=== PATIENT | female | born 1975 | race African-American/Black ===

== ENCOUNTER 2022-03-07 06:43 | Outpatient (REF) | payer BC, SELFPAY ==
--- NOTE | ~2022-03-07 | XR_ITS ---
EXAMINATION: XR KNEE, LEFT CLINICAL INFORMATION: Left knee pain. COMPARISON: Previous x-ray July 2016 TECHNIQUE: Standing view of both knees and lateral and sunrise view of the left knee of the left knee. FINDINGS: LEFT KNEE: Bone alignment is normal. No fracture or dislocation is seen. There is severe arthritis at the medial femorotibial and patellofemoral joints with joint space narrowing and osteophyte formation. There is an osteophyte at the quadriceps tendon insertion to the patella. There is a small joint effusion. RIGHT KNEE: Standing AP view of the right knee demonstrates arthritis at the medial femorotibial joint. XR/XR knee LT 2V IMPRESSION: LEFT KNEE: Arthritis at the medial femorotibial and patellofemoral joints and small joint effusion. RIGHT KNEE: Arthritis at the medial femorotibial joint.
--- NOTE | ~2022-03-07 | XR_ITS ---
EXAMINATION: XR KNEE, LEFT CLINICAL INFORMATION: Left knee pain. COMPARISON: Previous x-ray July 2016 TECHNIQUE: Standing view of both knees and lateral and sunrise view of the left knee of the left knee. FINDINGS: LEFT KNEE: Bone alignment is normal. No fracture or dislocation is seen. There is severe arthritis at the medial femorotibial and patellofemoral joints with joint space narrowing and osteophyte formation. There is an osteophyte at the quadriceps tendon insertion to the patella. There is a small joint effusion. RIGHT KNEE: Standing AP view of the right knee demonstrates arthritis at the medial femorotibial joint. XR/XR knee standing BI IMPRESSION: LEFT KNEE: Arthritis at the medial femorotibial and patellofemoral joints and small joint effusion. RIGHT KNEE: Arthritis at the medial femorotibial joint.
== END 2022-03-07 06:44 | disposition home or self-care (01) ==
LOC: HO.HOSX 06:43
PROVIDERS: Visit Provider Physician Assistant
DX: M17.12 Unilateral primary osteoarthritis, left knee (principal); M25.561 Pain in right knee
CPT/HCPCS: 20610; 73560; 73565; J1040

== ENCOUNTER 2024-02-19 09:34 | Outpatient (REF) | payer BC, SELFPAY ==
--- NOTE | ~2024-02-19 | XR_ITS ---
EXAMINATION: XR KNEE, LEFT CLINICAL INFORMATION: Pain in unspecified knee. COMPARISON: 03/07/2022. TECHNIQUE: AP standing view of bilateral knees. Lateral and sunrise views of the left knee. FINDINGS: RIGHT KNEE: AP standing view of the right knee demonstrates lwtcjyxq-me-wflohn narrowing of the medial compartment with medial and lateral marginal osteophytes. LEFT KNEE: Redemonstration of [id number]-[id number] narrowing of the medial compartment with narrowing of the patellofemoral compartment as well. Tricompartmental osteophytes. Small suprapatellar effusion. XR/XR knee LT 3V IMPRESSION: 1. Advanced degenerative changes in the medial and patellofemoral compartments of the left knee. 2. Advanced degenerative changes in the right medial compartment.
== END 2024-02-19 09:35 | disposition home or self-care (01) ==
LOC: HO.HOSX 09:34
PROVIDERS: Visit Provider Physician Assistant
DX: M17.12 Unilateral primary osteoarthritis, left knee (principal)
CPT/HCPCS: 20610; 73562; J1040

== ENCOUNTER 2024-02-19 15:15 | Outpatient (AMB) | payer BC, SELFPAY ==
--- NOTE | 2024-02-19 15:29 | MHC.OFFVIS ---
Intake Intake Visit Reasons: OV - left knee OA, last inj 03/07/22 Allergies codeine Allergy (Unknown, Verified 03/07/22 14:00) Agitated No Known Allergies Allergy (Unverified 03/07/22 14:00) Pt states no known allergy to Allergy (Unknown, Uncoded 03/07/22 14:00) Agitated HPI OV - left knee OA, last inj 03/07/22 HPI Details 49-year-old female who presents in the office today for a follow up of left knee osteoarthritis. I last saw the patient in the office on 03/07/2022 at which time she received a cortisone injection in the left knee. 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 No ecchymosis, redness or joint effusion .Full extension and flexion. No tenderness to palpation of the medial or lateral joint lines. Crepitus felt on ROM. Negative steinmans and anterior drawer. NVI. Office Procedures Joint Injection/Drain Joint Injection/Drain Primary Site: left knee Prep: site was prepped using aseptic technique, ethochloride spray was applied and injection warnings given Injected: 80 mg of, DepoMedrol, with 8 mL of (2% plain lido ) and in the joint Approach Used: anterolateral Procedure: The patient tolerated the procedure well, but had some pain with the injection and there was some relief with the local anesthesia Coding 59500 - Large joint Procedure code (CPT) selection complete Assessment & Plan Assessment & Plan (1) Osteoarthritis of left knee: Code(s): M17.12 - Unilateral primary osteoarthritis, left knee Qualifiers: Osteoarthritis type: unspecified Qualified Code(s): M17.12 - Unilateral primary osteoarthritis, left knee Plan Ms. Morris is a 49-year-old female who presents in the office today for a follow up of left knee osteoarthritis. I last saw the patient in the office on 03/07/2022 at which time she received a cortisone injection in the left knee. The patient was offered a cortisone injection in the left knee with 80 mg of DepoMedrol. The patient was explained the risk, benefits, and alternatives to receiving this injection. After receiving consent for the injection, the patient had the procedure done while in office today. The patient tolerated the procedure well with no complications. Follow up will be PRN, or sooner if needed. X-rays of the left knee which were obtained while in the office today and were reviewed by me, Deborah Villa PA-C, revealed severe osteoarthritis with varus deformity. Orders: Orders XR knee standing BI Today M25.569 - Pain in unspecified knee Patient Instructions: Scribed by Aleida Duque medical information officer, for Deborah Villa PA-C on 02/19/2024 at 3:18 pm, EST. Coding Level of Care Code Est Pt Level 3 (29227) Diagnoses Osteoarthritis of left knee, unspecified osteoarthritis type M17.12 Osteoarthritis type: unspecified CPT Codes Coding - 43756 Large joint: 75043 - Large joint ([id number])
--- NOTE | 2024-02-19 15:36 | MHC.OFFVIS ---
Intake Intake Visit Reasons: OV - left knee OA, last inj 03/07/22 Intake Note: Sha is a 49 year old patient who presents today for a follow up of her left knee OA, last injection 03/07/22. Patient reports her last injection lasted her about 2 - 3 months, however she would like to repeat the before she starts to think about gel injections. Patient has tried 3 + months of topical cream. 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 Office Procedures Joint Injection/Drain Joint Injection/Drain Primary Site: left knee Prep: site was prepped using aseptic technique, ethochloride spray was applied and injection warnings given Injected: 80 mg of, DepoMedrol, with 8 mL of (2% plain lido ) and in the joint Approach Used: anterolateral Procedure: The patient tolerated the procedure well, but had some pain with the injection and there was some relief with the local anesthesia Coding 83922 - Large joint Procedure code (CPT) selection complete Assessment & Plan Assessment & Plan (1) Osteoarthritis of left knee: Code(s): M17.12 - Unilateral primary osteoarthritis, left knee Qualifiers: Osteoarthritis type: unspecified Qualified Code(s): M17.12 - Unilateral primary osteoarthritis, left knee Orders: Orders XR knee standing BI Today M25.569 - Pain in unspecified knee Coding Diagnoses Osteoarthritis of left knee, unspecified osteoarthritis type M17.12 Osteoarthritis type: unspecified CPT Codes Coding - 13317 Large joint: 47026 - Large joint ([id number])
== END 2024-02-19 15:37 | disposition home or self-care (01) ==
PROVIDERS: Visit Provider Physician Assistant
DX: M17.12 Unilateral primary osteoarthritis, left knee (principal)
CPT/HCPCS: 20610; 99213

== ENCOUNTER 2024-03-18 10:42 | Outpatient (REF) | payer BC, SELFPAY ==
--- NOTE | ~2024-03-18 | XR_ITS ---
EXAMINATION: XR KNEE, RIGHT CLINICAL INFORMATION: Pain in unspecified knee COMPARISON: AP standing view both knees TECHNIQUE: Lateral and sunrise of the right knee. FINDINGS: No fracture. Not appropriately positioned to evaluate for joint effusion. There is known marked degenerative change of the medial joint compartment with marginal osteophyte formation. There is moderate narrowing of the patellofemoral joint compartment with large marginal osteophytes. No abnormal soft tissue calcification. XR/XR knee RT 2V IMPRESSION: 1. No acute bony abnormality. 2. Degenerative changes.
== END 2024-03-18 10:43 | disposition home or self-care (01) ==
LOC: HO.HOSX 10:42
PROVIDERS: Visit Provider Physician Assistant
DX: M17.11 Unilateral primary osteoarthritis, right knee (principal)
CPT/HCPCS: 20610; 73560; J1010

== ENCOUNTER 2024-03-18 15:21 | Outpatient (AMB) | payer BC, SELFPAY ==
--- NOTE | 2024-03-18 15:43 | MHC.OFFVIS ---
Vital Signs 03/18/24 15:47 Height 5 ft 2 in Weight 245 lb BMI 44.8 Intake Visit Reasons: OV - left knee pain Intake Note: Sha is a 49 year old female who presents today for a follow up of her left knee, last injection 02/19/24. Patient reports a week of relief. She expresses that her pain started to come back about 2 weeks ago. Patient describes hearing crunching and popping in her knee when she is laying down. Allergies codeine Allergy (Unknown, Verified 03/18/24 15:47) Agitated No Known Allergies Allergy (Verified 03/18/24 15:47) Pt states no known allergy to Allergy (Unknown, Uncoded 03/07/22 14:00) Agitated HPI HPI OV - left knee pain: Details: 49-year-old female who presents in the office today for an evaluation of bilateral knee pain. I last saw the patient in the office on 02/19/2024 when she received a cortisone injection. While in the office today the patient reports the injection gave her about one week of relief. She states her pain returned about 2 weeks ago. She claims to hear crunching and popping in the left knee when she is laying down. Patient reports pain in the right knee. 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 No ecchymosis, redness or joint effusion .Full extension and flexion. No tenderness to palpation of the medial or lateral joint lines. Crepitus felt on ROM. Negative steinmans and anterior drawer. NVI. Right knee: Normal to inspection. No ecchymosis, erythema, or joint effusion. No tenderness to palpation along the medial or lateral joint lines. Full knee extension and flexion. Crepitus felt with ROM. NVI. Office Procedures Joint Injection/Drain Joint Injection/Drain Primary Site: right knee Prep: site was prepped using aseptic technique, ethochloride spray was applied and injection warnings given Injected: 80 mg of, DepoMedrol, with 8 mL of (2% plain lido ) and in the joint Approach Used: anterolateral Procedure: The patient tolerated the procedure well, but had some pain with the injection and there was some relief with the local anesthesia Coding 18719 - Large joint Procedure code (CPT) selection complete Assessment & Plan Assessment & Plan (1) Osteoarthritis of left knee: Code(s): M17.12 - Unilateral primary osteoarthritis, left knee Category: Medical Qualifiers: Osteoarthritis type: unspecified Qualified Code(s): M17.12 - Unilateral primary osteoarthritis, left knee (2) Osteoarthritis of right knee: Code(s): M17.11 - Unilateral primary osteoarthritis, right knee Category: Medical Qualifiers: Osteoarthritis type: unspecified Qualified Code(s): M17.11 - Unilateral primary osteoarthritis, right knee Plan Ms. Morris is a 49-year-old female who presents in the office today for an evaluation of bilateral knee pain. I last saw the patient in the office on 02/19/2024 when she received a cortisone injection. While in the office today the patient reports the injection gave her about one week of relief. She states her pain returned about 2 weeks ago. She claims to hear crunching and popping in the left knee when she is laying down. Patient reports pain in the right knee. The patient was offered a cortisone injection in the right knee with 80mg of DepoMedrol. The patient was explained the risk, benefits, and alternatives to receiving this injection. After receiving consent for the injection, the patient had the procedure done while in the office today. The patient tolerated the procedure well with no complications. Patient reports 2 weeks worth of relief with her left knee cortisone injection. She would like to attempt an injection of cortisone in the right knee. We will also petition the insurance company for coverage of Gel injections for the bilateral knees. Follow-up will be after insurance approval for Gel injections, or sooner if needed. X-rays of the right knee which were obtained while in the office today and were reviewed by me, Deborah Villa PA-C, revealed significant osteoarthritis. Orders: Orders XR knee RT 2V Today M25.569 - Pain in unspecified knee Patient Instructions: Scribed by Aleida Duque medical communication specialist, for Deborah Villa PA-C on 03/18/2024 at 3:44 pm, EST.
[2024-03-18 15:47] VITALS: BMI 44.8
== END 2024-03-18 16:33 | disposition home or self-care (01) ==
PROVIDERS: Visit Provider Physician Assistant
DX: M17.0 Bilateral primary osteoarthritis of knee (principal)
CPT/HCPCS: 20610; 99213

== ENCOUNTER 2024-04-15 15:16 | Outpatient (AMB) | payer BC, SELFPAY ==
--- NOTE | 2024-04-15 15:25 | A.OFFVIS_ITS ---
Intake Visit Reasons: Left Knee Euflexxa Gel injection #1 Intake Note: Sha is a 49 year old female who presents today for her first euflexxa gel injections for her left knee. Allergies codeine Allergy (Unknown, Verified 03/18/24 15:47) Agitated No Known Allergies Allergy (Verified 03/18/24 15:47) Pt states no known allergy to Allergy (Unknown, Uncoded 03/07/22 14:00) Agitated HPI HPI Left Knee Euflexxa Gel injection #1: Details: 49-year-old female who presents in the office today for a follow up of left knee pain and to obtain her 1st Euflexxa injection in a series of 3. 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 No ecchymosis, redness or joint effusion .Full extension and flexion. No tenderness to palpation of the medial or lateral joint lines. Crepitus felt on ROM. Negative steinmans and anterior drawer. NVI. Office Procedures Joint Injection/Drain Joint Injection/Drain Primary Site: left knee Prep: site was prepped using aseptic technique, ethochloride spray was applied and injection warnings given Injected: in the joint (Eufelxxa #1) Approach Used: anterolateral Procedure: The patient tolerated the procedure well, but had some pain with the injection and there was some relief with the local anesthesia Coding 74990 - Large joint Procedure code (CPT) selection complete Assessment & Plan Assessment & Plan (1) Osteoarthritis of left knee: Code(s): M17.12 - Unilateral primary osteoarthritis, left knee Category: Medical Qualifiers: Osteoarthritis type: unspecified Qualified Code(s): M17.12 - Unilateral primary osteoarthritis, left knee Plan Ms. Morris is a 49-year-old female who presents in the office today for a follow up of left knee pain and to obtain her 1st Euflexxa injection in a series of 3. The patient was injection with her 1stEuflexxa injection in the left knee. The patient was explained the risk, benefits, and alternatives to receiving this injection. After receiving consent for the injection, the patient had the procedure done while in the office today. The patient tolerated the procedure well with no complications. Follow up will be in 1 week for her second injection in a series of three, or sooner if needed. Patient Instructions: Scribed by Aleida Duque medical reception specialist, for Deborah Villa PA-C on 04/15/2024 at 3:49 pm, EST. Coding Level of Care Code Procedure Only Diagnoses Osteoarthritis of left knee, unspecified osteoarthritis type M17.12 Osteoarthritis type: unspecified CPT Codes Coding - 85286 Large joint: 25635 - Large joint ([id number])
== END 2024-04-15 15:47 | disposition home or self-care (01) ==
PROVIDERS: Visit Provider Physician Assistant
DX: M17.12 Unilateral primary osteoarthritis, left knee (principal)
CPT/HCPCS: 20610

== ENCOUNTER → 2024-04-15 15:16 | Outpatient (BNVA) | payer BC, SELFPAY | PROVIDERS: Visit Provider Physician Assistant | DX: M17.12 Unilateral primary osteoarthritis, left knee (principal) | CPT/HCPCS: 20610; J7323 ==

== ENCOUNTER 2024-04-22 13:58 | Outpatient (AMB) | payer BC, SELFPAY ==
--- NOTE | 2024-04-22 14:09 | MHC.OFFVIS ---
Intake Visit Reasons: Left Knee Euflexxa Gel injection #2 Intake Note: hSa is a 49 year old female who presents today for her second euflexxa gel injection. Patient reports here last injection gave her relief an Allergies codeine Allergy (Unknown, Verified 03/18/24 15:47) Agitated No Known Allergies Allergy (Verified 03/18/24 15:47) Pt states no known allergy to Allergy (Unknown, Uncoded 03/07/22 14:00) Agitated HPI HPI Left Knee Euflexxa Gel injection #2: Details: 49-year-old female who presents in the office today for a follow up of left knee pain and to obtain her 2nd Euflexxa injection in a series of 3. 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 No ecchymosis, redness or joint effusion .Full extension and flexion. No tenderness to palpation of the medial or lateral joint lines. Crepitus felt on ROM. Negative steinmans and anterior drawer. NVI. Office Procedures Joint Injection/Drain Joint Injection/Drain Primary Site: left knee Prep: site was prepped using aseptic technique, ethochloride spray was applied and injection warnings given Injected: in the joint (Euflexxa #2) Approach Used: anterolateral Procedure: The patient tolerated the procedure well, but had some pain with the injection and there was some relief with the local anesthesia Coding 15610 - Large joint Procedure code (CPT) selection complete Assessment & Plan Assessment & Plan (1) Osteoarthritis of left knee: Code(s): M17.12 - Unilateral primary osteoarthritis, left knee Category: Medical Qualifiers: Osteoarthritis type: unspecified Qualified Code(s): M17.12 - Unilateral primary osteoarthritis, left knee Plan Ms. Morris is a 49-year-old female who presents in the office today for a follow up of left knee pain and to obtain her 2nd Euflexxa injection in a series of 3. The patient was injection with her 2nd Euflexxa injection in the left knee. The patient was explained the risk, benefits, and alternatives to receiving this injection. After receiving consent for the injection, the patient had the procedure done while in the office today. The patient tolerated the procedure well with no complications. Follow up will be in 1 week for her third injection in a series of three, or sooner if needed. Patient Instructions: Scribed by Aleida Duque durable medical equipment technician, for Deborah Villa PA-C on 04/22/2024 at 2:02 pm, EST. Coding Level of Care Code Procedure Only Diagnoses Osteoarthritis of left knee, unspecified osteoarthritis type M17.12 Osteoarthritis type: unspecified CPT Codes Coding - 73646 Large joint: 09596 - Large joint ([id number])
== END 2024-04-22 14:32 | disposition home or self-care (01) ==
PROVIDERS: Visit Provider Physician Assistant
DX: M17.12 Unilateral primary osteoarthritis, left knee (principal)
CPT/HCPCS: 20610

== ENCOUNTER → 2024-04-22 13:58 | Outpatient (BNVA) | payer BC, SELFPAY | PROVIDERS: Visit Provider Physician Assistant | DX: M17.12 Unilateral primary osteoarthritis, left knee (principal) | CPT/HCPCS: 20610; J7323 ==

== ENCOUNTER 2024-05-04 14:53 | Outpatient (AMB) | payer BC, SELFPAY ==
--- NOTE | 2024-05-04 14:58 | MHC.OFFVIS ---
Vital Signs 05/04/24 15:04 Height 5 ft 2 in Weight 245 lb BMI 44.8 Intake Visit Reasons: Left Knee Euflexxa Gel injection #3 Intake Note: Sha is a 49 year old female who presents today for her third euflexxa gel injection. Patient reports here last injection didn't give her relief. She hasn't had any changes in her pain. Allergies codeine Allergy (Unknown, Verified 03/18/24 15:47) Agitated No Known Allergies Allergy (Verified 03/18/24 15:47) Pt states no known allergy to Allergy (Unknown, Uncoded 03/07/22 14:00) Agitated HPI HPI Left Knee Euflexxa Gel injection #3: Details: 49-year-old female who presents in the office today for a follow up of left knee pain and to obtain her 3rd Euflexxa injection in a series of 3. While in the office today the patient reports she has not had any relief in her pain. She states her amount of pain is the same. 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 No ecchymosis, redness or joint effusion .Full extension and flexion. No tenderness to palpation of the medial or lateral joint lines. Crepitus felt on ROM. Negative steinmans and anterior drawer. NVI. Office Procedures Joint Injection/Drain Joint Injection/Drain Primary Site: left knee Prep: site was prepped using aseptic technique, ethochloride spray was applied and injection warnings given Injected: in the joint (Euflexxa #3) Approach Used: anterolateral Procedure: The patient tolerated the procedure well, but had some pain with the injection and there was some relief with the local anesthesia Coding 31849 - Large joint Procedure code (CPT) selection complete Assessment & Plan Assessment & Plan (1) Osteoarthritis of left knee: Code(s): M17.12 - Unilateral primary osteoarthritis, left knee Category: Medical Qualifiers: Osteoarthritis type: unspecified Qualified Code(s): M17.12 - Unilateral primary osteoarthritis, left knee Plan Ms. Morris is a 49-year-old female who presents in the office today for a follow up of left knee pain and to obtain her 3rd Euflexxa injection in a series of 3. While in the office today the patient reports she has not had any relief in her pain. She states her amount of pain is the same. The patient was injection with her 3rd Euflexxa injection in the left knee. The patient was explained the risk, benefits, and alternatives to receiving this injection. After receiving consent for the injection, the patient had the procedure done while in the office today. The patient tolerated the procedure well with no complications. Follow-up will be PRN, or sooner if needed. Patient Instructions: Scribed by Aleida Duque esthetician and manager medical spa, for Deborah Villa PA-C on 05/04/2024 at 3:09 pm, EST. Coding Level of Care Code Procedure Only Diagnoses Osteoarthritis of left knee, unspecified osteoarthritis type M17.12 Osteoarthritis type: unspecified CPT Codes Coding - 64157 Large joint: 68796 - Large joint ([id number])
[2024-05-04 15:04] VITALS: BMI 44.8
== END 2024-05-04 15:14 | disposition home or self-care (01) ==
PROVIDERS: Visit Provider Physician Assistant
DX: M17.12 Unilateral primary osteoarthritis, left knee (principal)
CPT/HCPCS: 20610

== ENCOUNTER → 2024-05-04 14:53 | Outpatient (BNVA) | payer BC, SELFPAY | PROVIDERS: Visit Provider Physician Assistant | DX: M17.12 Unilateral primary osteoarthritis, left knee (principal) | CPT/HCPCS: 20610; J7323 ==

== ENCOUNTER → 2025-01-25 12:01 | Outpatient (BNVA) | payer OTHER, SELFPAY | PROVIDERS: Visit Provider Registered Nurse | DX: S80.02XA Contusion of left knee, initial encounter (principal); S60.022A Contusion of left index finger without damage to nail, initial encounter; W00.0XXA Fall on same level due to ice and snow, initial encounter | CPT/HCPCS: 73130; 73564; 99203 ==

== ENCOUNTER → 2025-01-28 09:28 | Outpatient (BNVA) | payer OTHER, SELFPAY | PROVIDERS: Visit Provider Physician Assistant | DX: S80.02XA Contusion of left knee, initial encounter (principal); S60.022A Contusion of left index finger without damage to nail, initial encounter; W00.0XXA Fall on same level due to ice and snow, initial encounter | CPT/HCPCS: 99213 ==

== ENCOUNTER → 2025-02-01 09:14 | Outpatient (BNVA) | payer OTHER, SELFPAY | PROVIDERS: Visit Provider Registered Nurse | DX: S80.02XD Contusion of left knee, subsequent encounter (principal); S60.022D Contusion of left index finger without damage to nail, subsequent encounter; S39.012D Strain of muscle, fascia and tendon of lower back, subsequent encounter; W00.0XXD Fall on same level due to ice and snow, subsequent encounter | CPT/HCPCS: 99213 ==

== ENCOUNTER → 2025-02-15 09:13 | Outpatient (BNVA) | payer OTHER, SELFPAY | PROVIDERS: PCP Internal Medicine; Visit Provider Registered Nurse | DX: S80.02XD Contusion of left knee, subsequent encounter (principal); W00.0XXD Fall on same level due to ice and snow, subsequent encounter | CPT/HCPCS: 99213 ==

== ENCOUNTER → 2025-03-01 09:37 | Outpatient (BNVA) | payer OTHER, SELFPAY | PROVIDERS: PCP Internal Medicine; Visit Provider Registered Nurse | DX: S80.02XD Contusion of left knee, subsequent encounter (principal); W00.0XXD Fall on same level due to ice and snow, subsequent encounter | CPT/HCPCS: 99213 ==

== ENCOUNTER 2025-03-07 15:02 | Outpatient (RCR) | payer OTHER, BC, SELFPAY ==
--- NOTE | 2025-02-11 08:58 | MHC.PT.EP ---
[facility] [place] Office [place] Office [address] [phone] F: [phone] F: [phone] F: [phone] F: [phone] Physical Therapy Plan of Care Date of Evaluation: 02/11/25 Date of Surgery: NA Diagnosis: L knee contusion Assessment: Sha is a 49 year old female who is referred to PT for L knee contusion . She reports of injuring her L knee at work about 3 weeks back following a fall. She fell on her knee. She went to later that day. Fracture as ruled out. On PT examination she presented with TTP along medial joint line, medial border of patella, 7/10 constant pain in L knee, decreased B knee ROM, decreased L LE strength, altered posture, balance and gait. She lives alone and is independent with self care activities but her aunt has been helping her with IADLS. 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 She would benefit from skilled PT to address the aforementioned impairments and improve tolerance to functional activities. Frequency and Duration: The patient will be seen 2/week for 5 weeks Short Term Goals: 1. Pt will have 50% decrease in pain which will enable her to sleep through the night in 2 weeks. 2. Pt will be able to move her knee through full plane of motion with a pain no more than 2/10 which will enable her to negotiate stairs without difficulty in 3 weeks Medical Insurance Clerk Goals: 1. Pt will demonstrate an increase in muscle strength by 1 grade which will enable her to walk, stand and perform IADLS with a pain no more than 1/10 in 5 weeks 2. Pt will be independent with all HEP for symptom management and maintenance following d/c in 5 weeks. Treatment Plan: Modalities to reduce pain, spasms and effusion. Manual therapy to restore motion and function. Therapeutic exercise to improve strength and flexibility. Neuromuscular re-education for posture and balance. Therapeutic activities to return to functional activities of daily living. Electronically signed by: Sarah Hollis PT DPT Please sign and return to therapist. Thank you for your referral.
--- NOTE | 2025-03-07 15:55 | MHC.PT.DC ---
[facility] [place] Office [place] Office [place] Office [address] [phone] F: [phone] F: [phone] F: [phone] F: [phone] Physical Therapy Discharge Report Diagnosis: L knee contusion Date of Surgery: NA Date of Evaluation: 02/11/25 Date of Discharge: 03/07/25 Treatments to Date: 7 Cancellations to Date: 0 No Shows to Date: 0 Discharge Status: Recommend MD Follow-up Discharge Summary: Sha completed 7 PT visits and has not noted much improvements in her pain levels. She is able to extend her knee completely all the way and wakes up with less pain however once she starts standing and walking her pain is severe. The pain also limits her from performing PT exercises. Due to this I am unable to progress her with exercises. She has very poor tolerance to standing exercises. I therefore recommended to her to follow up with physician for pain management and return to PT to work on strength once pain levels are tolerable. Sha is being d/c from PT and she was in agreement with the plan. I reviewed all exercises as well with her. Electronically signed by: Sarah Hollis, PT DPT Please sign and return to therapist. Thank you for your referral.
== END 2025-03-07 15:55 | disposition home or self-care (01) ==
LOC: HO.PT 15:02
PROVIDERS: PCP Internal Medicine; Visit Provider Registered Nurse
DX: S80.02XD Contusion of left knee, subsequent encounter (principal)
CPT/HCPCS: 97014; 97110; 97140; 97161

== ENCOUNTER → 2025-03-15 09:39 | Outpatient (BNVA) | payer OTHER, SELFPAY | PROVIDERS: PCP Internal Medicine; Visit Provider Registered Nurse | DX: S80.02XD Contusion of left knee, subsequent encounter (principal); W00.0XXD Fall on same level due to ice and snow, subsequent encounter | CPT/HCPCS: 99213 ==

== ENCOUNTER 2025-03-22 11:03 | Outpatient (AMB) | payer OTHER, SELFPAY ==
--- NOTE | 2025-03-22 11:05 | MHC.OFFVIS ---
Vital Signs 03/22/25 11:07 Height 5 ft 2 in Intake Visit Reasons: NewProb-Lt Knee pain/contusion WC DOI 01/25/25 Intake Note: Sha is a 50 year old female who presents today for a workers comp injury to her left knee, DOI 01/25/25. Patient has a fall onto her left keen, she was seen at work connection. She was referred to PT which has provided limited improvement. Patient reports having a burning sensation since January. She states that her pain 7/10 on the pain scale today. Patient has been taking ibuprofen with mild relief. Allergies codeine Allergy (Unknown, Verified 03/22/25 11:07) Agitated No Known Allergies Allergy (Verified 03/22/25 11:07) Pt states no known allergy to Allergy (Unknown, Uncoded 03/07/22 14:00) Agitated HPI HPI NewProb-Lt Knee pain/contusion WC DOI 01/25/25: Details: Ms. Morris is a 50-year-old female who presents to the office today status post fall directly onto the left knee with increase in pain. She reports that she fell while at work landing directly onto the left knee. She has been having increased pain ever since. She had a cortisone injection in December of this year that was giving her great relief up until this point. Additionally, she has been attending physical therapy with minimal improvement. She is taking ibuprofen with mild relief. 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 Range of motion 0-90 degrees with crepitus. No tenderness to palpation medial or lateral joint lines. Pain with patellar grind. NVI. Office Procedures AMB Joint Injection/Aspiration Joint Injection/Aspiration Primary Site: left knee Prep: site was prepped using aseptic technique, ethochloride spray was applied and injection warnings given Injected: 80 mg of, DepoMedrol, with 8 mL of (2% plain lidocaine) and in the joint Approach Used: anterolateral Procedure: The patient tolerated the procedure well, but had some pain with the injection and there was some relief with the local anesthesia Coding 91719 - Large joint Procedure code (CPT) selection complete Assessment & Plan Assessment & Plan (1) Osteoarthritis of left knee: Code(s): M17.12 - Unilateral primary osteoarthritis, left knee Category: Medical Qualifiers: Osteoarthritis type: unspecified Qualified Code(s): M17.12 - Unilateral primary osteoarthritis, left knee Plan Ms. Morris is a 50-year-old female who presents to the office today status post fall directly onto the left knee with increase in pain. She reports that she fell while at work landing directly onto the left knee. She has been having increased pain ever since. She had a cortisone injection in December of this year that was giving her great relief up until this point. Additionally, she has been attending physical therapy with minimal improvement. She is taking ibuprofen with mild relief. While in the office today, we discussed the role of surgical versus conservative treatment options. Patient would like to avoid surgical intervention at this time. Therefore as her last injection was in December I offered a repeat cortisone injection. The patient was offered a cortisone injection in the left knee with 80 mg of DepoMedrol. The patient was explained the risks, benefits, and alternatives to receiving this injection. After receiving consent for the injection, the patient had the procedure done while in the office today. The patient tolerated the procedure well with no complications. Of note, the patient reports that she has had gel injections in the past and did not offer her any relief. In fact this caused her to increase in pain and therefore she would only like to continue with cortisone injections. I also recommended a topical pain cream which will be sent to [facility]. She will continue physical therapy sessions. She is working full-time regular duty and will continue to do so. Follow-up will be 4 weeks, or sooner if needed X-rays of the left knee which were obtained on 01/25/2025 reviewed by me, Deborah Villa PA-C, revealed severe osteoarthritis. Coding Level of Care Code Est Pt Level 3 (87044) Diagnoses Osteoarthritis of left knee, unspecified osteoarthritis type M17.12 Osteoarthritis type: unspecified CPT Codes Coding - Large joint: 45426 - Large joint ([id number])
== END 2025-03-22 11:33 | disposition home or self-care (01) ==
LOC: HO.HOS 11:03
PROVIDERS: PCP Internal Medicine; Visit Provider Physician Assistant
DX: M17.12 Unilateral primary osteoarthritis, left knee (principal); Z04.2 Encounter for examination and observation following work accident
CPT/HCPCS: 20610; 99213

== ENCOUNTER → 2025-03-22 11:03 | Outpatient (BNVA) | payer OTHER, SELFPAY | PROVIDERS: PCP Internal Medicine; Visit Provider Physician Assistant | DX: M17.12 Unilateral primary osteoarthritis, left knee (principal); Z91.81 History of falling | CPT/HCPCS: 20610; 99212; J1010; J2003 ==

== ENCOUNTER 2025-04-19 08:29 | Outpatient (AMB) | payer OTHER, SELFPAY ==
--- NOTE | 2025-04-19 08:31 | MHC.OFFVIS ---
Vital Signs 04/19/25 08:40 Height 5 ft 2 in Intake Visit Reasons: OV - left knee OA, DOI 01/25/25 Intake Note: Sha is a 50 year old female who presents today for a follow up of her left knee OA, DOI 01/25/25. At her last visit on 03/22/25 we injected her left knee (80). Patient reports still having pain. She heard back from [facility] pharmacy and she needs a PA sent to her worker comp. Allergies codeine Allergy (Unknown, Verified 04/19/25 08:39) Agitated No Known Allergies Allergy (Verified 04/19/25 08:39) Pt states no known allergy to Allergy (Unknown, Uncoded 03/07/22 14:00) Agitated HPI HPI OV - left knee OA, DOI 01/25/25: Details: Ms. Morris is a 50-year-old female who presents to the office today for routine follow-up of left knee osteoarthritis with contusion. Date of injury was 01/25/2025 when she was at work falling directly onto the left knee. She has been attending physical therapy with limited improvement. She reports that the left knee has been giving out on her resulting in a fall last week. At her last appointment on 03/22/2025 I have recommended topical pain cream. Unfortunately, the compounding pharmacy is awaiting workman's comp approval on this. Additionally, we tried a left knee cortisone injection which helped some. 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 Range of motion 0-90 degrees with crepitus. No tenderness to palpation medial or lateral joint lines. Pain with patellar grind. NVI. Assessment & Plan Assessment & Plan (1) Osteoarthritis of left knee: Code(s): M17.12 - Unilateral primary osteoarthritis, left knee Category: Medical Qualifiers: Osteoarthritis type: unspecified Qualified Code(s): M17.12 - Unilateral primary osteoarthritis, left knee (2) Contusion of left knee: Code(s): S80.02XA - Contusion of left knee, initial encounter Category: Medical Plan Ms. Morris is a 50-year-old female who presents to the office today for routine follow-up of left knee osteoarthritis with contusion. Date of injury was 01/25/2025 when she was at work falling directly onto the left knee. She has been attending physical therapy with limited improvement. She reports that the left knee has been giving out on her resulting in a fall last week. At her last appointment on 03/22/2025 I have recommended topical pain cream. Unfortunately, the compounding pharmacy is awaiting [place] [employer]'s comp approval on this. Additionally, we tried a cortisone injection into the left knee which helped some. Patient has tried and failed gel injections in the past and is not interested in repeating these. While in the office today, I provided the patient with a wrap pop knee brace off the shelf. Additionally she will continue attending physical therapy until all sessions have been complete. I have also discussed additional conservative treatment options including the potential for geniculate nerve blocks. The patient would like to explore this option more. Therefore, a referral to pain management has been placed. She will continue her light duty restrictions at work. Her follow up will be with pain management, sooner if needed. Coding Level of Care Code Est Pt Level 3 (29681) Diagnoses Osteoarthritis of left knee, unspecified osteoarthritis type M17.12 Osteoarthritis type: unspecified Contusion of left knee S80.02XA
== END 2025-04-19 09:03 | disposition home or self-care (01) ==
LOC: HO.HOS 08:29
PROVIDERS: PCP Internal Medicine; Visit Provider Physician Assistant
DX: M17.12 Unilateral primary osteoarthritis, left knee (principal); S80.02XA Contusion of left knee, initial encounter
CPT/HCPCS: 99213

== ENCOUNTER → 2025-04-19 08:29 | Outpatient (BNVA) | payer OTHER, SELFPAY | PROVIDERS: PCP Internal Medicine; Visit Provider Physician Assistant | DX: M17.12 Unilateral primary osteoarthritis, left knee (principal); S80.02XA Contusion of left knee, initial encounter | CPT/HCPCS: 99212 ==

== ENCOUNTER 2025-05-11 09:20 | Outpatient (AMB) | payer OTHER, SELFPAY ==
--- NOTE | 2025-05-11 09:22 | A.OFFVIS_ITS ---
Vital Signs 05/11/25 09:23 Height 5 ft 2 in Weight 226 lb BMI 41.3 BP 127/67 Blood Pressure Location Rt brachial Position Standing Respiration 16 Pulse 88 Pulse Source Pulse Oximeter Pulse Oximetry (%) 99 Oxygen Delivery Method Room Air Intake Visit Reasons: Contusion of Left Knee (WC) Educational Diagnostician Required: No Accompanied by: Self / Same As Patient Allergies codeine Allergy (Unknown, Verified 05/11/25 09:27) Agitated No Known Allergies Allergy (Verified 05/11/25 09:27) Pt states no known allergy to Allergy (Unknown, Uncoded 03/07/22 14:00) Agitated HPI Comments Details: The patient is a 50-year-old female presenting with left knee pain. She sustained an exacerbation of her chronic pain in January 2025 following a fall at work. Patient slipped on ice, landed directly on her left knee. She received a steroid injection at Orthopedics 2 months ago with no improvement. Despite attempts to manage the pain using steroid and gel injections, her symptoms persist. X-rays indicated severe osteoarthritis. Most recent treatments such as physical therapy have led to worsening symptoms, including increased cracking and restricted flexibility in the knee. She just completed 9 weeks of physical therapy this week, she reports it helped some however the pain persists. - Onset: January after a fall at work - Quality: Cracking sensation, particularly medial aspect - Location: Left knee, anterior insertion; no radiation noted - Exacerbating Factors: Movement, especially extending the knee - Relieving Factors: None reported effective - Interference: Knee gives out; impaired movement and bending - Affect: Pain affects mood and psychological well-being - Analgesia: Cortisone and gel injections previously used; current pain level remains high - Adverse Effects: None reported from pain medications - Activities of Daily Living: Pain impairing knee movement and daily function; physical therapy increased pain - Aberrant Drug Related Behaviors: Patient cautiously avoids narcotics due to past addiction history [facility] Social History Current occupational status: employed 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 Answers questions appropriately. Fully engaged in examination. Skin: warm, dry, intact HEENT: Normocephalic. Hearing intact. Cardiac: External chest normal in appearance. Respiratory: No cough, audible wheezing or stridor. Abdomen: without gross distension. MS: No obvious swelling or deformities. Able to transition from sit to stand unassisted. Left knee: Decreased range of motion. Tender to palpation medial aspect. Positive crepitus. Neurological: Oriented to person, place, time and situation. Thought process intact. No gait abnormalities appreciated. Psychiatric: Appropriate mood and affect. Good judgment and insight. Results Reviewed Results Reviewed: Per recent ortho note: X-rays of the left knee which were obtained on 01/25/2025 reviewed by me, Deborah Vilal PA-C, revealed severe osteoarthritis. Assessment & Plan Assessment & Plan (1) Osteoarthritis of left knee: Code(s): M17.12 - Unilateral primary osteoarthritis, left knee Category: Medical Qualifiers: Osteoarthritis type: unspecified Qualified Code(s): M17.12 - Unilateral primary osteoarthritis, left knee (2) Contusion of left knee: Code(s): S80.02XA - Contusion of left knee, initial encounter Category: Medical Plan Given the patient's severe left knee osteoarthritis, discuss the options of performing a genicular nerve block to assess the effectiveness of a potential radiofrequency ablation versus diagnostic saphenous nerve block for potential sprint PNS. We will evaluate whether a peripheral nerve stimulator might be beneficial in disrupting pain signals. Approval from Workman's Comp is required for these interventions. The discussed treatments aim to improve pain control, function, and delay potential surgical intervention, aligning with the patient's goal to avoid narcotics and surgery. I explored the range of interventional treatment options for the patient's chronic left knee pain due to severe osteoarthritis. We deliberated on the genicular nerve block and radiofrequency ablation procedures, including the diagnostic nerve block's role in determining suitability for ablation. Another alternative discussed was the use of a peripheral nerve stimulator. Each procedure's benefits, such as improved pain management and avoidance of surgery, risks, which include potential procedural discomfort and long-term efficacy, and approval requirements were covered. The patient was informed that depending on [employer]'s [employer] response, the next steps will be outlined once authorization is obtained. I emphasized the importance of managing pain effectively to maintain quality of life and potentially delay knee replacement surgery. Will schedule for left diagnostic saphenous nerve block with local anesthetic under ultrasound guidance. She was given pamphlet for sprint PNS to reviewed home. Patient was informed and verbally consented to the use of an ambient scribe for clinic note documentation during this visit. Patient Instructions: - Await contact regarding [place]'s [employer] approval for nerve block procedure. - Keep a pain diary following diagnostic injection if performed. - Report any changes in pain levels or functional ability. - Seek follow-up appointment to discuss procedure outcomes once completed. Coding Level of Care Code New Pt Level 4 (21823) Complex EM visit Add On G2211 Diagnoses Osteoarthritis of left knee, unspecified osteoarthritis type M17.12 Osteoarthritis type: unspecified Contusion of left knee S80.02XA
[2025-05-11 09:23] VITALS: BP 127/67; PULSE 88; RESP 16; O2SAT 99; BMI 41.3
== END 2025-05-11 10:05 | disposition home or self-care (01) ==
LOC: HO.PMC 09:21
PROVIDERS: PCP Internal Medicine; Referring Provider Physician Assistant; Visit Provider Registered Nurse Emergency
DX: M17.12 Unilateral primary osteoarthritis, left knee (principal); S80.02XA Contusion of left knee, initial encounter
CPT/HCPCS: 99204; G2211

== ENCOUNTER → 2025-05-11 09:20 | Outpatient (BNVA) | payer OTHER, SELFPAY | PROVIDERS: PCP Internal Medicine; Referring Provider Physician Assistant; Visit Provider Registered Nurse Emergency | DX: M17.12 Unilateral primary osteoarthritis, left knee (principal); M25.562 Pain in left knee; S80.02XD Contusion of left knee, subsequent encounter; W00.0XXD Fall on same level due to ice and snow, subsequent encounter | CPT/HCPCS: 99202 ==

== ENCOUNTER 2025-06-08 10:33 | Outpatient (AMB) | payer OTHER, SELFPAY ==
[2025-06-08 10:35] VITALS: BP 128/66; PULSE 95; RESP 16; O2SAT 98; BMI 41.3
--- NOTE | 2025-06-08 10:35 | A.OFFVIS_ITS ---
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 She has undergone various treatments including steroid injections, physical therapy, NSAIDs, and gel injections, yet the left knee continues to give out. She is taking ibuprofen with minimal improvement. She is not interested in alternative oral medications. Previous interventional management options have been denied by her insurance including nerve block with plan for sprint PNS trial and genicular nerve block. - Location: Left knee - Quality: Instability, giving out - Exacerbating factors: Physical activity - Relieving factors: Steroid injections, physical therapy, NSAIDs, gel injections - Affect: The pain impacts the patient's daily activities and causes significant discomfort. - Analgesia: Current treatments include steroid injections, physical therapy, NSAIDs, and gel injections. - Adverse Effects: No specific adverse effects discussed. - Activities of Daily Living: The knee instability affects the patient's ability to perform daily activities. - Aberrant Drug Related Behaviors: The patient reports difficulty remembering to take medications. 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 Answers questions appropriately. Fully engaged in examination. Skin: warm, dry, intact HEENT: Normocephalic. Hearing intact. Cardiac: External chest normal in appearance. Respiratory: No cough, audible wheezing or stridor. Abdomen: without gross distension. MS: No obvious swelling or deformities. Able to transition from sit to stand unassisted. Left knee: Decreased range of motion. Tender to palpation medial aspect. Positive crepitus. Neurological: Oriented to person, place, time and situation. Thought process intact. No gait abnormalities appreciated. Psychiatric: Appropriate mood and affect. Good judgment and insight. Results Reviewed Results Reviewed: Per recent ortho note: X-rays of the left knee which were obtained on 01/25/2025 reviewed by me, Deborah Villa PA-C, revealed severe osteoarthritis. Assessment & Plan Assessment & Plan (1) Osteoarthritis of left knee: Code(s): M17.12 - Unilateral primary osteoarthritis, left knee Category: Medical Qualifiers: Osteoarthritis type: unspecified Qualified Code(s): M17.12 - Unilateral primary osteoarthritis, left knee (2) Contusion of left knee: Code(s): S80.02XA - Contusion of left knee, initial encounter Category: Medical (3) Left knee pain: Code(s): M25.562 - Pain in left knee Category: Medical Plan An MRI of the left knee will be ordered to assess the cause of the instability and pain. The patient should follow up with orthopedics for further evaluation, which may include surgical consultation. Current pain management strategies, including physical therapy and NSAIDs, should be continued while awaiting further diagnostic results. I discussed with the patient the limitations of her current workman's compensation coverage, which includes steroid injections, gel injections, physical therapy, and NSAIDs which have all been attempted yet pain persists. Her workmen's comp insurance does not cover PRP, nerve blocks, or stimulators. Patient was informed and verbally consented to the use of an ambient scribe for clinic note documentation during this visit. Orders: Orders MR knee LT wo con Today M17.12 - Unilateral primary osteoarthritis, left knee, M25.562 - Pain in left knee Patient Instructions: - Schedule an MRI for the left knee as soon as possible. - Follow up with the orthopedic surgeon for further evaluation and management. - Continue current pain management strategies, including physical therapy and NSAIDs. Coding Level of Care Code Est Pt Level 3 (35863) Complex EM visit Add On G2211 Diagnoses Osteoarthritis of left knee, unspecified osteoarthritis type M17.12 Osteoarthritis type: unspecified Contusion of left knee S80.02XA Left knee pain M25.562
== END 2025-06-08 10:46 | disposition home or self-care (01) ==
LOC: HO.PMC 10:34
PROVIDERS: PCP Internal Medicine; Visit Provider Registered Nurse Emergency
DX: M17.12 Unilateral primary osteoarthritis, left knee (principal); S80.02XA Contusion of left knee, initial encounter; M25.562 Pain in left knee
CPT/HCPCS: 99213; G2211

== ENCOUNTER → 2025-06-08 10:33 | Outpatient (BNVA) | payer OTHER, SELFPAY | PROVIDERS: PCP Internal Medicine; Visit Provider Registered Nurse Emergency | DX: M17.12 Unilateral primary osteoarthritis, left knee (principal); S80.02XA Contusion of left knee, initial encounter; M25.562 Pain in left knee | CPT/HCPCS: 99212 ==

== ENCOUNTER 2025-06-17 14:06 | Outpatient (RCR) | payer OTHER, BC, SELFPAY ==
--- NOTE | 2025-04-13 15:53 | MHC.PT.EP ---
[facility] [place] Office [place] Office [place] Office [address] [phone] F: [phone] F: [phone] F: [phone] F: [phone] Physical Therapy Plan of Care Date of Evaluation: 04/13/25 Date of Surgery: NA Diagnosis: Unilateral primary OA of L knee Contusion of L knee Assessment: Sha is a 50 year old female who is referred to PT for Unilateral primary OA of L knee, Contusion of L knee . She injured her knee about 3 months back secondary to direct fall on her on a concrete surface at work. She was in PT after the initial injury however had no improvements in pain level and was therefore d/c from PT. She had a cortisone shot for L knee about 2 weeks back and has returned to PT as pain is better. On PT examination she presented with 0/10 pain at 4/10 pain with standing, walking and stairs, presented TTP over medial joint line and medial border of patella, decreased knee ROM, decreased L LE strength, altered posture, balance and gait. She lives alone and is independent with self care activities (does it with frequent seated rest breaks) but her aunt helps her with IADLS. 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 She would benefit from skilled PT to address the aforementioned impairments and improve tolerance to functional activities. Frequency and Duration: The patient will be seen 2/week for 5 weeks Short Term Goals: 1. Pt will report of having 50% decrease in pain which will enable her to stand at work without pain in 2 weeks 2. Pt will be able to move L knee through full plane of motion with a pain no more than 2/10 which will enable her to negotiate stairs in alternate pattern in 3 weeks Half-Way Goals: 1. Pt will demonstrate an increase in muscle strength by 1 grade which will enable her to walk without pain in 5 weeks 2. Pt will be independent with all HEP for symptom management and maintenance following d/c in 5 weeks. Treatment Plan: Modalities to reduce pain, spasms and effusion. Manual therapy to restore motion and function. Therapeutic exercise to improve strength and flexibility. Neuromuscular re-education for posture and balance. Therapeutic activities to return to functional activities of daily living. Electronically signed by: Sarah Hollis PT DPT Please sign and return to therapist. Thank you for your referral.
--- NOTE | 2025-06-21 13:31 | MHC.PT.DC ---
[facility] [place] [facility] [place] [facility] [place] [facility] [address] Pushpa Kline [address] [phone] F: [phone] F: [phone] F: [phone] F: [phone] Physical Therapy Discharge Report Diagnosis: Unilateral primary OA of L knee Contusion of L knee Date of Surgery: NA Date of Evaluation: 04/13/25 Date of Discharge: 06/21/25 Treatments to Date: 15 Cancellations to Date: 0 No Shows to Date: 0 Discharge Status: Independent with HEP Discharge Summary: Sha arrived stating she is in a lot of pain. She followed up with pain management and they recommended her getting an MRI and see if she was a candidate for TKA. She has MRI scheduled on 07/25/25. Sha has completed 15 PT visits. She feels stronger but her pain levels have remain unchanged. She is independent with all her HEP as well. Due to lack of improvement she is being d/c from PT and was recommended to continue exercises and seek help from her physicians for pain management. Sha was in agreement with the plan. Electronically signed by: Sarah Hollis, PT DPT Please sign and return to therapist. Thank you for your referral.
== END 2025-06-21 13:32 | disposition home or self-care (01) ==
LOC: HO.PT 14:06
PROVIDERS: PCP Internal Medicine; Visit Provider Physician Assistant
DX: M17.12 Unilateral primary osteoarthritis, left knee (principal); S80.02XD Contusion of left knee, subsequent encounter
CPT/HCPCS: 97033; 97035; 97110; 97140; 97161; 97530

== ENCOUNTER 2025-07-01 18:18 | Outpatient (REF) | payer OTHER, SELFPAY ==
--- NOTE | ~2025-07-01 | MR_ITS ---
CLINICAL HISTORY: M25.562 - Pain in left knee MR left knee without gadolinium Comparison: None provided Findings: No acute fracture. Mild lateral translation of the tibiofemoral compartment. Small knee joint effusion with mild synovitis +/-small intra-articular bodies. Full thickness likely chronic ACL tear. Intact PCL with neighboring mild to moderate synovitis. Medial compartment: Severe osteoarthritis with associated wejt-jp-txew contact and moderate subchondral bone marrow edema that extends into the intercondylar regions of the tibia and femur. The body and posterior horn of the meniscus is either not seen or is severely thinned. There is significant synovitis along the medial aspect of the medial tibiofemoral compartment (deep to the superficial MCL) with torn deep MCL and grade 1 sprain of the superficial MCL. Synovial/ganglion cysts (measuring up to 12 mm) are seen both deep and superficial to the MC, L as well as deep to the semimembranosus tendon with surrounding yaxw-qw-quvdrgll edematous changes. Leaking Christian's cyst. Lateral meniscus and posterolateral structures (except for mild edematous changes at level of the popliteus muscle attachment), and IT band are unremarkable. Focal denudation of the medial aspect of the weight-bearing surface of the lateral femoral cartilage on background of partial lateral tibiofemoral compartmental cartilage thinning. Mild patellar tendinosis. Intact quadriceps tendon and retinacula. Partial patellotrochlear cartilage thinning and a single trochlear full-thickness fissure. Mild subcutaneous edema. Small number of subcutaneous varicose veins. IMPRESSION: ACL deficient knee with tricompartmental osteoarthritis at is most conspicuous and severe in the medial tibiofemoral compartment. Portions of the medial meniscus as well as the deep MCL are torn and there is significant synovitis deep to the superficial MCL. Synovial/ganglion cysts are seen in the vicinity of the MCL as described above. Other findings as above. This document has been electronically signed by: Rosmery Rodríguez MD on 07/05/2025 10:23:38
== END 2025-07-01 18:19 | disposition home or self-care (01) ==
LOC: HO.MRI 18:18
PROVIDERS: PCP Internal Medicine; Visit Provider Registered Nurse Emergency
DX: M17.12 Unilateral primary osteoarthritis, left knee (principal)
CPT/HCPCS: 73721

== ENCOUNTER → 2025-07-01 18:28 | Outpatient (BNV) | payer OTHER, SELFPAY | PROVIDERS: PCP Internal Medicine; Visit Provider Radiology Diagnostic Radiology | DX: S83.222A Peripheral tear of medial meniscus, current injury, left knee, initial encounter (principal) | CPT/HCPCS: 73721 ==

== ENCOUNTER 2025-07-13 13:17 | Outpatient (AMB) | payer OTHER, SELFPAY ==
[2025-07-13 13:19] VITALS: BP 150/76; PULSE 96; RESP 16; O2SAT 97; BMI 41.3
--- NOTE | 2025-07-13 13:19 | MHC.OFFVIS ---
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 The knee pain has been persistent and is exacerbated by the presence of significant arthritis and a deep tear in the MCL, leading to inflammation and discomfort. The patient reports that the condition has been ongoing and is currently managed under workman's compensation, which limits treatment options. Previous interventions have included attempts to gain approval for various treatments such as nerve blocks and nerve stimulators, all of which have been denied by workman's compensation. Patient was evaluated by [facility], was told that she is not a surgical candidate. She is requesting referral for 2nd opinion. The patient has been informed about Platelet-Rich Plasma (PRP) therapy as a potential treatment, although it is uncertain if workman's compensation will cover it. The patient expresses a desire for relief from the chronic pain and is considering all available options, including referral for 2nd opinion. 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 Answers questions appropriately. Fully engaged in examination. Skin: warm, dry, intact HEENT: Normocephalic. Hearing intact. Cardiac: External chest normal in appearance. Respiratory: No cough, audible wheezing or stridor. Abdomen: without gross distension. MS: No obvious swelling or deformities. Able to transition from sit to stand unassisted. Left knee: Decreased range of motion. Tender to palpation medial aspect. Positive crepitus. Neurological: Oriented to person, place, time and situation. Thought process intact. No gait abnormalities appreciated. Psychiatric: Appropriate mood and affect. Good judgment and insight. Results Reviewed Results Reviewed: 07/2025 MRI left knee Findings: No acute fracture. Mild lateral translation of the tibiofemoral compartment. Small knee joint effusion with mild synovitis +/-small intra-articular bodies. Full thickness likely chronic ACL tear. Intact PCL with neighboring mild to moderate synovitis. Medial compartment: Severe osteoarthritis with associated bjdm-cn-awjy contact and moderate subchondral bone marrow edema that extends into the intercondylar regions of the tibia and femur. The body and posterior horn of the meniscus is either not seen or is severely thinned. There is significant synovitis along the medial aspect of the medial tibiofemoral compartment (deep to the superficial MCL) with torn deep MCL and grade 1 sprain of the superficial MCL. Synovial/ganglion cysts (measuring up to 12 mm) are seen both deep and superficial to the MC, L as well as deep to the semimembranosus tendon with surrounding znui-jw-ibgyhuij edematous changes. Leaking Christian's cyst. Lateral meniscus and posterolateral structures (except for mild edematous changes at level of the popliteus muscle attachment), and IT band are unremarkable. Focal denudation of the medial aspect of the weight-bearing surface of the lateral femoral cartilage on background of partial lateral tibiofemoral compartmental cartilage thinning. Mild patellar tendinosis. Intact quadriceps tendon and retinacula. Partial patellotrochlear cartilage thinning and a single trochlear full-thickness fissure. Mild subcutaneous edema. Small number of subcutaneous varicose veins. IMPRESSION: ACL deficient knee with tricompartmental osteoarthritis at is most conspicuous and severe in the medial tibiofemoral compartment. Portions of the medial meniscus as well as the deep MCL are torn and there is significant synovitis deep to the superficial MCL. Synovial/ganglion cysts are seen in the vicinity of the MCL as described above. Other findings as above. Per recent ortho note: X-rays of the left knee which were obtained on 01/25/2025 reviewed by , Deborah Villa PA-C, revealed severe osteoarthritis. Assessment & Plan Assessment & Plan (1) Left knee pain: Code(s): M25.562 - Pain in left knee Category: Medical (2) Osteoarthritis of left knee: Code(s): M17.12 - Unilateral primary osteoarthritis, left knee Category: Medical Qualifiers: Osteoarthritis type: unspecified Qualified Code(s): M17.12 - Unilateral primary osteoarthritis, left knee (3) Contusion of left knee: Code(s): S80.02XA - Contusion of left knee, initial encounter Category: Medical (4) Left knee sprain: Code(s): S83.92XA - Sprain of unspecified site of left knee, initial encounter Category: Medical Plan The patient will be referred to [facility] for a second opinion regarding her knee condition per her request. Discussion about Platelet-Rich Plasma PRP) therapy was conducted, highlighting its regenerative potential, although coverage by workman's compensation remains uncertain. The patient is advised to contact workman's compensation to clarify coverage for potential treatments and to advocate for necessary interventions. Patient was informed and verbally consented to the use of an ambient scribe for clinic note documentation during this visit. Orders: Referrals Orthopedics Referral M25.562 - Pain in left knee Patient Instructions: - Follow up with [facility] for a second opinion per your request. - Review information on Platelet-Rich Plasma (PRP) therapy and discuss with workman's compensation regarding coverage. - Contact workman's compensation to clarify coverage for potential treatments and advocate for necessary interventions. Coding Level of Care Code Est Pt Level 3 (81000) Complex EM visit Add On G2211 Diagnoses Left knee pain M25.562 Osteoarthritis of left knee, unspecified osteoarthritis type M17.12 Osteoarthritis type: unspecified Contusion of left knee S80.02XA Left knee sprain S83.92XA
== END 2025-07-13 14:34 | disposition home or self-care (01) ==
LOC: HO.PMC 13:17
PROVIDERS: PCP Internal Medicine; Visit Provider Registered Nurse Emergency
DX: M25.562 Pain in left knee (principal); M17.12 Unilateral primary osteoarthritis, left knee; S80.02XA Contusion of left knee, initial encounter; S83.92XA Sprain of unspecified site of left knee, initial encounter
CPT/HCPCS: 99213; G2211

== ENCOUNTER → 2025-07-13 13:17 | Outpatient (BNVA) | payer OTHER, SELFPAY | PROVIDERS: PCP Internal Medicine; Visit Provider Registered Nurse Emergency | DX: Z71.2 Person consulting for explanation of examination or test findings (principal); M25.562 Pain in left knee; M17.12 Unilateral primary osteoarthritis, left knee; S80.02XA Contusion of left knee, initial encounter; S83.92XA Sprain of unspecified site of left knee, initial encounter | CPT/HCPCS: 99212 ==

== ENCOUNTER 2025-07-30 15:22 | Emergency (ER) | payer OTHER, SELFPAY ==
--- NOTE | 2025-07-30 | ECG_ITS ---
Test Reason : LOW K Blood Pressure : */* mmHG Vent. Rate : 89 BPM Atrial Rate : 89 BPM P-R Int : 164 ms QRS Dur : 80 ms QT Int : 414 ms P-R-T Axes : 47 28 5 degrees QTcB Int : 503 ms Normal sinus rhythm Nonspecific ST and T wave abnormality Prolonged QT Abnormal ECG No previous ECGs available Referred By: Generic ED Physician Electronically Signed By: DESTINEY JASMINE
[2025-07-30 15:29] VITALS: BP 153/72; PULSE 102; RESP 16; TEMP 36.4; O2SAT 97; BMI 36.6
--- NOTE | 2025-07-30 15:30 | ED_ITS ---
HPI - General Adult General Chief complaint: Recheck/Abnormal Lab/Rx Stated complaint: abnormal labs Time Seen by Provider: 07/30/25 15:32 Source: patient Mode of arrival: ambulatory Limitations: no limitations History of Present Illness ED Provider: Luisa SCHAEFFER narrative: 50-year-old female presents for evaluation of low potassium. She had routine labs drawn 2 days ago and was told her potassium is 2.7. She reports that she feels well, has no complaints or concerns pain Denies any nausea vomiting, diarrhea pain Denies any chest pain, palpitations or shortness of breath She does take hydrochlorothiazide 12.5 mg daily for management of hypertension Related Data Home Medications ?Medication ?Instructions ?Recorded ?Confirmed ferrous sulfate 325 mg (65 mg 325 mg PO BID 05/11/25 iron) tablet hydrochlorothiazide 12.5 mg tablet 12.5 mg PO DAILY ibuprofen 800 mg tablet 800 mg PO TID PRN pain 05/11 semaglutide (weight loss) 1.7 1.7 mg subcut Q4W mg/0.75 mL subcutaneous pen injector (Wegovy) Previous Rx's ?Medication ?Instructions ?Recorded potassium chloride 20 mEq oral 40 meq PO DAILY #30 ea 07/30/25 packet Allergies Allergy/AdvReac Type Severity Reaction Status Date / Time codeine Allergy Unknown Agitated Verified 07/30/25 15:34 No Known Allergies Allergy Verified 07/30/25 15:34 Pt states no known allergy to Allergy Unknown Agitated Uncoded 03/07/22 14:00 Review of Systems 2 Constitutional: Constitutional: Denies body ache(s), Denies chills, Denies fever(s) and Denies headache(s) Eyes: Eyes: Denies blind spots and Denies blurry vision ENT: Denies vertigo, Denies dizziness and Denies headache(s) Cardiovascular: Cardiovascular: Denies chest pain and Denies dyspnea on exertion Respiratory: Respiratory: Denies cough and Denies dyspnea on exertion Gastrointestinal: Gastrointestinal: Denies abdominal pain, Denies nausea and Denies vomiting Musculoskeletal: Musculoskeletal: Denies back pain Integumentary/Breasts: Skin/Breast: Denies rash Neurologic: Denies vertigo, Denies dizziness and Denies headache(s) [facility], [facility] Social History Social History (Reviewed 04/19/25 @ 08:40 by Andres Berrios Advance Directives: No Advance Directives Information Provided: No Current occupational status: employed 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 Physical Exam ED Vital Signs: Vital Signs - 24 hr 07/30/25 15:29 07/30/25 16:43 Temperature 97.6 F 97.9 F Pulse Rate 102 H 80 Respiratory Rate 16 19 Blood Pressure 153/72 H 132/85 Pulse Oximetry 97 99 Oxygen Delivery Method Room Air Room Air BMI result Body Mass Index 36.6 Const General: healthy appearing, comfortable, no acute distress, alert and awake Nutritional Appearance: well nourished Orientation/consciousness: patient oriented x3 HENMT Head: Yes normocephalic and Yes atraumatic Eyes Eyelids: Yes eyelids normal Conjunctivae: conjunctivae normal Sclerae: sclerae normal Corneas: corneas normal Pupils: Equal, round and reactive pupils present EOM: EOMs intact bilaterally Neck Neck: Yes full ROM Resp Effort & Inspection: normal respiratory effort, able to speak in complete sentences and not labored Cardio Rate: regular rate Rhythm: regular rhythm GI Inspection: No distended Palpation (GI): Soft to palpation, not firm, nontender, no guarding and not rigid Skin General skin exam: elasticity normal Neuro General: patient oriented x3 Cranial nerves: Yes Equal, round and reactive pupils present and Yes Bilaterally intact EOM present Cognition (Neuro): normal cognition Extrem Other: Moving all extremities well without any obvious deformities Course Course Course Narrative: RME, this is a rapid medical exam performed by Denis Moran please refer to primary provider for complete H&P- 50-year-old female presents for evaluation of low potassium. She had routine labs drawn 2 days ago and has a potassium that was reportedly 2.7. Plan for repeat labs. The patient does take hydrochlorothiazide 12.5 mg daily Medical Decision Making Medical Decision Making MDM Narrative: 50-year-old female with past medical history significant for hypertension presents for evaluation of low potassium. This was found on routine labs. The patient is currently asymptomatic. EKG was obtained that she had a normal sinus rhythm slightly lungs QTC at 5:03 a.m.. Her labs show a potassium of 2.8, this is essentially the same as it was 2 days ago. She has not had any vomiting or diarrhea to suggest GI loss but does take a diuretic which is likely the cause of her hypokalemia today. Given that she is asymptomatic, well-appearing and not vomiting or having diarrhea we will treat with potassium 60 mEq p.o. and discharge her with a prescription for additional potassium. She will have her labs drawn next week. Differential Diagnosis Differential Diagnoses: The differential diagnosis associated with the presentation includes Hypokalemia Side effect of hydrochlorothiazide Metabolic abnormality Lab Data MDM Lab Attestation statement: I reviewed the patient's lab results. Patient has a mild anemia with no active bleeding. There was no leukocytosis, normal platelet count. Potassium is low at 2.7. Chloride is low at 95 both likely attributed to hydrochlorothiazide use. The patient is CO2 is slightly elevated to 32 and this is possibly due to obstructive sleep apnea. 07/30/25 15:39 07/30/25 15:39 Labs: Lab Results 07/30/25 Range/Units 15:39 WBC 8.0 (4.8-10.8) X10*3/uL RBC 4.02 L (4.20-5.50) X10*6/uL Hgb 11.0 L (12.0-16.0) g/dl Hct 32.2 L (37.0-47.0) % MCV 80.1 (80.0-98.0) fL MCH 27.4 (27.0-33.0) pg MCHC 34.2 (31.0-35.0) g/dl RDW 12.7 (11.0-16.0) % Plt Count 266 (160-400) X10*3/uL MPV 11.9 (9.4-12.3) fL Immature Gran % (Auto) 0.1 (0.0-0.4) % Neut % (Auto) 48.1 (45-73) % Lymph % (Auto) 42.4 H (20-40) % [place] % (Auto) 6.9 (2-11) % Eos % (Auto) 1.9 (0-4) % Baso % (Auto) 0.6 (0-2) % Lymph # (Auto) 3.4 (1.2-4.9) X10*3/uL [place] # (Auto) 0.6 (0.1-1.2) X10*3/uL Eos # (Auto) 0.2 (0.0-0.4) X10*3/uL Baso # (Auto) 0.1 (0.0-0.2) X10*3/uL Abs Immat Gran (auto) 0.01 (0.00-0.03) X10*3/uL Absolute Neuts (auto) 3.9 (2.0-8.3) x10*3/uL Absolute Nucleated RBC 0.000 (0.0-0.012) X10*3/uL Nucleated RBC % (auto) 0.0 (0.0-0.2) /100WBC Sodium 141 (135-145) mmol/L Potassium 2.7 L* (3.3-5.1) mmol/L Chloride 95 L (96-108) mmol/L Carbon Dioxide 32 H (22-29) mmol/L Anion Gap 17 (12-20) BUN 13 (9-16) mg/dL Creatinine 0.80 (0.5-1.4) mg/dL Estim Creat Clear Calc 96.2 Estimated GFR > 60 Random Glucose 87 (60-115) mg/dL Calcium 9.6 (8.4-10.2) mg/dL Magnesium 2.1 (1.6-2.6) mg/dL Independent Interpretation I performed an independent interpretation of an: EKG Discharge Plan Discharge Clinical Impression: Acute hypokalemia Patient Disposition: Home, Self-Care Instructions: Potassium Content of Foods List (ED), Hypokalemia (ED) Additional Instructions: Your potassium today was 2.8. It is likely low due to your hydrochlorothiazide. Take the potassium supplementation daily for the next 5 days pain Follow up with your primary doctor to have repeat labs next week pain Return to the ER if you are experiencing any symptoms such as palpitations, chest pain or shortness of breath Prescriptions: New potassium chloride 20 mEq packet 40 meq PO DAILY Qty: 30 0RF No Action hydrochlorothiazide 12.5 mg tablet 12.5 mg PO DAILY ibuprofen 800 mg tablet 800 mg PO TID PRN (Reason: pain) Wegovy 1.7 mg/0.75 mL pen injector 1.7 mg subcut Q4W ferrous sulfate 325 mg (65 mg iron) tablet 325 mg PO BID Print Language: Latvian
[2025-07-30 15:48] LABS: MANUAL DIFF FLAG NO
[2025-07-30 16:34] LABS: Hematocrit 32.2 % (37.0-47.0); Hemoglobin 11.0 g/dl (12.0-16.0); Imm Gran Abs Auto 0.01 X10*3/uL (0.00-0.03); Imm Gran Pct Auto 0.1 % (0.0-0.4); Lymphocytes Absolute Auto 3.4 X10*3/uL (1.2-4.9); Mean Corpuscular HGB Conc 34.2 g/dl (31.0-35.0); Mean Corpuscular Hemoglobin 27.4 pg (27.0-33.0); Mean Corpuscular Volume 80.1 fL (80.0-98.0); NRBC Abs Auto 0.000 X10*3/uL (0.0-0.012); NRBC Pct Auto 0.0 /100WBC (0.0-0.2); Platelet Count 266 X10*3/uL (160-400); Red Blood Count 4.02 X10*6/uL (4.20-5.50); White Blood Count 8.0 X10*3/uL (4.8-10.8)
[2025-07-30 16:43] VITALS: BP 132/85; PULSE 80; RESP 19; TEMP 36.6; O2SAT 99
[2025-07-30 16:52] LABS: Anion Gap 17 (12-20); Blood Urea Nitrogen 13 mg/dL (9-16); Calcium 9.6 mg/dL (8.4-10.2); Carbon Dioxide 32 mmol/L (22-29); Chloride 95 mmol/L (96-108); Creatinine Clr Calc Pharmacy 96.2; Estimated Glomerular Filt Rate > 60; Magnesium 2.1 mg/dL (1.6-2.6); Potassium 2.7 mmol/L (3.3-5.1); Sodium 141 mmol/L (135-145)
[2025-07-30] MEDS: Potassium Chloride ER 20 MEQ TAB.ER.PRT 60 MEQ PO (17:18)
[2025-07-30 17:22] VITALS: BP 132/85; PULSE 80; RESP 19; TEMP 36.6; O2SAT 99
== END 2025-07-30 17:22 | disposition home or self-care (01) ==
PROVIDERS: Physician Assistant; Emergency Provider Emergency Medicine; PCP Internal Medicine
DX: E87.6 Hypokalemia (principal); R79.89 Other specified abnormal findings of blood chemistry; R94.31 Abnormal electrocardiogram [ECG] [EKG]; Z79.899 Other long term (current) drug therapy
CPT/HCPCS: 36415; 80048; 83735; 85025; 93005; 99283

== ENCOUNTER → 2025-07-30 15:38 | Outpatient (BNV) | payer OTHER, SELFPAY | PROVIDERS: Emergency Provider Emergency Medicine; PCP Internal Medicine; Visit Provider Internal Medicine | DX: R94.31 Abnormal electrocardiogram [ECG] [EKG] (principal); R79.9 Abnormal finding of blood chemistry, unspecified | CPT/HCPCS: 93010 ==